=== PATIENT | male | born 1955 ===

== ENCOUNTER 2025-05-31 10:17 | Outpatient (AMB) | payer MEDICARE, SELFPAY ==
--- NOTE | 2025-05-31 10:21 | A.PHYSOV_ITS ---
Vital Signs 05/31/25 10:25 Height 5 ft 11 in Weight 215 lb BMI 30.0 Intake Visit Reasons: MRI FUV-SCANNED Intake Note: Patient is a 70 year old male in office today mri results of cervical spine. Safety And Security Manager Required: No Allergies No Known Allergies Allergy (Verified 05/31/25 10:25) HPI Comments Details: History of Present Illness The patient is a 70 year old individual presenting for a follow-up visit for chronic pain management and to review recent MRI results. The patient has a history of chronic pain involving the neck and lower back with associated cervical and lumbar radicular symptoms, bilateral knee pain, and a chronic right foot drop. The patient has undergone multiple prior surgeries, including lumbar fusions and cervical fusions at C3-C4 and a C5-C7 anterior cervical discectomy and fusion (ACDF), which resulted in chronic dysphagia. The patient reports worsening neck pain, described as the worst it has been in the last five years, which now interferes with sleep. An oral prednisone course prescribed last month did not provide relief. The patient previously tried pregabalin, which was discontinued due to intolerable cognitive side effects and nausea, and has also used gabapentin without perceived benefit. He has been able to tolerate gabapentin, however finds it unhelpful recently. The patient is managed under a pain medication contract and is prescribed MSContin 30 mg three times a day and oxycodone 20 mg 3 times a day for breakthrough pain, which provides a 40-50% reduction in pain. The patient's surgical history by [facility], who reportedly advised against further surgeries due to extensive scar tissue. He returns today with results of updated cervical spine MRI. Images were reviewed and discussed with the patient and his who was also present. The most pertinent finding on the MRI was evidence of moderate to severe bilateral C7-T1 neural foraminal stenosis and T1-T2 neural foraminal stenosis. Pain Description - Location: Chronic pain involves the neck, lower back, and bilateral knees. - Radiation: The patient reports pain radiating down both arms to the hands. - Quality: Numbness is present in both hands. - Character: The patient describes a weird sensation when sitting back in a chair, feeling as if the shoulder blades are being pressed in or pulled apart. - Severity: The patient describes the current pain as the worst experienced in the last five years. - Interference with Function: The pain wakes the patient from sleep. - Exacerbating Factors: Pain is worsened by sitting back in a chair and by putting weight on either shoulder while in bed. Results - Cervical Spine MRI (April 23, 2025): - Status post ACDF at C5-C6 and C6-C7. - C4-C5: Mild to moderate spinal canal stenosis with severe left and moderate right neural foraminal stenosis. - C5-C6: Moderate right and mild left neural foraminal stenosis. - C6-C7: Mild to moderate bilateral neural foraminal narrowing without significant central canal stenosis. - C7-T1: Moderate left and severe right neural foraminal narrowing. - T1-T2: Moderate to severe bilateral neuroforaminal narrowing, which has increased since the previous study. - Cervical Spine X-rays (January 05, 2023): Mentioned, results not discussed. - Cervical Spine MRI (November 14, 2022): Mentioned for comparison, results not detailed. [facility] Medical History (Updated 05/31/25 @ 11:44 by Andres Garnica DO) Cervical spinal stenosis Chronic pain syndrome Post laminectomy syndrome Lumbar radiculitis Cervical radiculitis Surgical History History of carpal tunnel surgery History of knee surgery History of hip replacement History of neck surgery History of back surgery Social History (Updated 05/31/25 @ 10:27 by Janey Potter MA) Household Members: Significant Other Alcohol intake: current Alcohol intake frequency: holidays/special occasions only Patient Tobacco Use Status: Never used Tobacco Substance Use Type: Marijuana Current occupational status: retired and disabled Review of Systems Narrative Review of Systems - Neurological: Reports radicular pain into both arms and numbness in both hands. - Reports a history of right foot drop. - Musculoskeletal: Reports chronic pain in the neck, lower back, and bilateral knees. - Reports frequent neck cracking. - Constitutional: Reports sleep disturbance secondary to pain. - GI: Reports chronic dysphagia as a complication from prior cervical spine surgery. Physical Exam Exam Exam: Physical Exam Patient appears to be in no acute distress appropriately conversant oriented. Severely flexed forward posture. Weakness of the right ankle dorsiflexion, weak eversion of the right foot, diminished right patellar reflex. He ambulates without antalgia with a walker today. Cervical range of motion was restricted in all planes. Spurling maneuver was positive on both sides. Neurological examination of upper extremities was nonfocal. Patient demonstrated no upper motor neuron signs. Vital Signs: BMI result Body Mass Index 30.0 Assessment & Plan Assessment & Plan (1) Cervical radiculitis: Code(s): M54.12 - Radiculopathy, cervical region Category: Medical (2) Lumbar radiculitis: Code(s): M54.16 - Radiculopathy, lumbar region Category: Medical (3) Post laminectomy syndrome: Code(s): M96.1 - Postlaminectomy syndrome, not elsewhere classified Category: Medical (4) Chronic pain syndrome: Code(s): G89.4 - Chronic pain syndrome Category: Medical (5) Cervical spinal stenosis: Code(s): M48.02 - Spinal stenosis, cervical region Category: Medical Plan Pain Management - Analgesia: The patient is contracted for pain medication, currently taking MSContin 30 mg three times daily and oxycodone 20 mg four times daily as needed for breakthrough pain. - The current regimen provides a reported 40-50% reduction in pain. - Activities of Daily Living: The patient reports that pain significantly disrupts sleep and cannot sit back or lie on either shoulder without pain. - The patient states, I can't live like this. - Affect: The pain causes significant sleep disturbance. - Adverse Effects: The patient previously tried pregabalin and experienced intolerable cognitive side effects and nausea. - When taking gabapentin twice a day, the patient felt in a fog or hazy. - Aberrant Drug-Related Behaviors: The patient ran out of breakthrough oxycodone on the day of the visit and requested an increase in the dosage. Plan Patient was informed and verbally consented to the use of an ambient scribe for clinic note documentation during this visit. 1. Cervicalgia With Cervical Radiculopathy The patient's worsening bilateral arm pain and hand numbness are consistent with findings on the recent cervical spine MRI, which shows significant C7-T1 and T1- T2 neuroforaminal narrowing below the prior cervical fusion. The pain is neuropathic in nature, significantly impacts sleep, and has failed to respond to a recent course of oral prednisone. Plan includes trialing gabapentin 1600 mg (two 800 mg tablets) at bedtime only to target neuropathic pain and improve sleep while minimizing daytime side effects. A T1-T2 epidural steroid injection under fluoroscopic guidance will be scheduled at [facility] to provide more targeted anti-inflammatory treatment. Surgical consultation for fusion extension was discussed as a future option, though the patient is reluctant given a history of complications and previous surgical advice. Risks and benefits of the procedure were discussed with the patient. Potential alternative measures were also discussed. Patient understands that the procedure is completely elective. Potential side effects associated with injectable medications were discussed. All questions were answered to the patient's satisfaction. 2. Chronic Pain Syndrome On Long-Term Opioid Therapy The patient is on a stable long-term opioid regimen with MSContin and oxycodone for breakthrough pain, reporting 40-50% analgesia. The patient requested a dose increase due to worsening pain and having run out of breakthrough medication. Given the neuropathic nature of the escalating pain and the patient's age, opioid escalation is not recommended at this time, with a focus instead on targeted neuropathic treatments. Prescriptions for the current regimen of MSContin 30 mg TID and oxycodone 20 mg will be refilled, oxycodone will be raised to 4 times a day as needed. Discussion Notes I reviewed the results of the patient's recent cervical spine MRI dated April 23, 2025, with the patient. I explained that the imaging shows significant foraminal narrowing at the C7-T1 and T1-T2 levels, which are below the previous surgical fusion, and that this nerve pinching is the likely cause of the worsening pain and numbness into both arms and hands. We discussed treatment options, including the possibility of another surgery to extend the fusion, but acknowledged the patient's reluctance due to prior complications like dysphagia and the previous surgeon's advice against more operations. I recommended a plan focused on conservative management, to which the patient agreed. This includes a T1-T2 epidural steroid injection, which I will perform under fluoroscopy at [facility]; I confirmed the patient is not on any blood thinners. We will also re-initiate a neuropathic agent, with the plan to try gabapentin 1600mg (two 800mg tablets) at bedtime only, in an effort to target the nerve pain and improve sleep while avoiding the daytime side effects the patient previously experienced. I discussed the patient's request for an increase in opioid medication and explained that escalating the dose is not the best course of action for this type of neuropathic pain and due to risks associated with aging. I agreed to send refills for the current pain medication regimen. The patient was informed that they will be contacted to schedule the injection. Patient Instructions - You will receive a call from [facility] to schedule an epidural s teroid injection (a shot in your upper back) for your arm pain and numbness. - Take two 800 mg tablets of gabapentin (total of 1600 mg) every night at bedtime. - Do not take gabapentin during the day, as this may help avoid side effects. - I have sent refills for your current pain medications (MSContin and oxycodone) to your pharmacy. - Please follow up after your injection procedure. Orders: Referrals Physiatry Procedure Notification M54.12 - Radiculopathy, cervical region Medications: New morphine ER Partial fill upon request 30 mg PO Q8H 84 tabs 0RF Chronic pain 28 days G89.4 - Chronic pain syndrome, M54.12 - Radiculopathy, cervical region, M54.16 - Radiculopathy, lumbar region, M96.1 - Postlaminectomy syndrome, not elsewhere classified oxycodone Partial fill upon request 20 mg PO QID PRN 112 tabs 0RF pain 28 days G89.4 - Chronic pain syndrome, M54.12 - Radiculopathy, cervical region, M54.16 - Radiculopathy, lumbar region, M96.1 - Postlaminectomy syndrome, not elsewhere classified Coding Level of Care Code Est Pt Level 4 (87884) Complex visit Add On G2211 Diagnoses Cervical radiculitis M54.12 Lumbar radiculitis M54.16 Post laminectomy syndrome M96.1 Chronic pain syndrome G89.4 Cervical spinal stenosis M48.02
--- OUTSIDE RECORDS SUMMARY | 2025-05-31 12:07 | XMS_ITS | Clinical Summary ---
Author Organization [facility] Address [address] [place] [address] Care Team Providers Care Mate Ship Name Role Phone Amairani Indigo Primary Care Provider Unavailjay e Allergies Active Allergy Reactions Criticality Noted Date Comments Morphine 04/20/2012 Reactions: Itching , [employer] Comment: Category: Allergy; 20Apr2012: ONLY WITH INTRAVENOUS MORPHINE Medications Amphetamine-Dex troamphetamine (ADDERALL) 30 MG tablet TAKE 1 TABLET TWICE DAILY. 0 4 Active Vitamin B-12 (VITAMIN B-12) 1000 MCG tablet TAKE 1 TABLET DAILY DIRECTED. 30 0 5 Active diazePAM (VALIUM) 10 MG tablet TAKE 1 TABLET TWICE DAILY, ONLY IF SPASMS 0 6 Active buPROPion HCl ER, XL, (WELLBUTRIN XL) 300 MG 24 hr tablet TAKE 1 TABLET BY MOUTH EVERY DAY 30 5 6 Active Acetaminophen (TYLENOL 8 HOUR) 650 MG 8 hr tablet TAKE 1 TABLET 4 TIMES DAILY NEEDED. 0 6 Active Atorvastatin Calcium (LIPITOR) 10 MG tablet TAKE 1 TABLET ON THURSDAY, THURSDAY AND THURSDAY 1 3 7 Active Gabapentin (NEURONTIN) 600 MG tablet TAKE ONE TABLET BY MOUTH THREE TIMES DAILY 90 5 7 Active Buprenorphine HCl-Naloxone HCl (SUBOXONE) 8-2 MG per SL tablet TAKE TWO IN MORNING, AND IF NEEDED, ANOTHER IN AFTERNOON 0 7 Active Active Problems Problem Noted Date Diagnosed Date Recurrent major depressive disorder, in partial remission 09/29/2018 Overview (08/09/2023): Severity: Medium Buprenorphine dependence 09/29/2018 Overview (08/09/2023): Severity: Medium Arthralgia 04/27/2018 Shoulder tendonitis 04/27/2018 Polyneuropathy associated with underlying diseas e 09/24/2017 Overview (08/09/2023): Transitioned From: Peripheral neuropathy Alcohol use, unspecified wit h unspecified alcohol-induced disorder 01/02/2017 Overview (08/09/2023): Severity: Medium Abnormal CXR (chest x-ray) 05/10/2016 Overview (08/09/2023): Description: follow up resolving infiltrate from prior pneumonia Rhabdomyolysis 05/02/2016 Meralgia paresthetica, left lower limb 6 Muscle spasm 01/01/2016 Abnormal breath sounds 09/17/2015 Erectile dysfunction 09/17/2015 Overview (08/09/2023): 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 Midline low back pain with right-sided sciatica 09/17/2015 Overview (08/09/2023): Transitioned From: Sciatica History of long-term treatment with high-risk me dication 08/28/2015 Vitamin B12 deficiency 01/29/2015 Basal cell carcinoma of skin 02/07/2014 Overview (08/09/2023): Description: L nasal Attention deficit disorder without hyperactivity 02/07/2014 Insomnia 12/06/2013 Overview (08/09/2023): Description: sleep study 2013 showed NO MAXIMILIANO ( AHI = 2) Snoring 05/06/2013 Essential hypertriglyceridemia 04/20/2012 Overview (08/09/2023): Transitioned From: Hyperlipidemia; Description: continue to exercise and monitor diet. lipids pending Anxiety disorder 11/04/2011 Overview (08/09/2023): Description: Doing ok but I would like him to try CBT. He agrees Gastroesophageal reflux disease 11/04/2011 Overview (08/09/2023): Description: Stable. Continue current treatment plan Never a smoker 07/10/2011 Resolved Problems Problem Noted Date Diagnosed Date Resolved Date History of Community acquired pneumonia 05/06/2016 09/22/2016 Immunizations Immunization Administration Dates Next Due Influenza (SEASONAL) - 03/21/2016,2014,05/17/2014,2012,04/20/2012 Influenza,injectable,quad,Prsrv Fr 04/27/2018 PCV-13 03/27/2015 PPV23 (Pneumovax) 04/17/2017 Tdap 04/20/2012 influenza,seasonal,trivalent ,PF (Fluzone, Fluarix, Flulaval) 04/17/2017 Family History Medical History Relation Name Comments Heart Disorder Father Reported Hear t Disease : Father Diabetes Maternal grandmother Diabete s Mellitus : Maternal Grandmother Cancer - Pancreatic Mother Malignan t Pancreatic Neoplasm : Mother Diabetes Mother Diabetes Mellit us : Mother Diabetes Sister Diabetes Mellit us : Sister Relation Name Status Comments Father Maternal grandmother Mother Sister Social History Tobacco Use Types Packs/Day Years Used Date Smoking Tobacco: Never Assessed Comments:Smoking Status:No c urrent tobacco use Sex and Gender Information Value Date Recorded Sex Assigned at Not on file Legal Sex Male 4:41 PM EDT Gender Identity Not on file Sexual Orientation Not on file Last Filed Vital Signs Vital Sign Reading Time Taken Comments Blood Pressure 124/70 04/27/2018 2:24 PM EDT Pulse 78 04/27/2018 2:24 PM EDT Temperature 37.2 C (99 F) 09/23/2017 12:14 PM EDT Respiratory Rate 20 04/27/2018 2:24 PM EDT Oxygen Saturation 98% 04/27/2018 2:24 PM EDT Inhaled Oxygen Concentration - - Weight 93.8 kg (206 lb 12.7 oz) 04/27/2018 2:24 PM EDT Height 175.3 cm (5' 9 ) 04/27/2018 2:24 PM EDT Body Mass Index 30.54 04/27/2018 2:24 PM EDT Plan of Treatment Health Maintenance Due Date Last Done Comments Zoster (Shingrix) (1 of 2) 2007 Pneumococcal 50+ years (3 of 3 - PCV20 or PCV21) 04/17/2022 04/17/2017, 03/27/2015 DTaP/Tdap/Td (2 - Td or Tdap) 04/20/2022 04/20/2012 Colon Cancer Screening 10/11/2023 10/10/2013 COVID-19 Vaccine ( season) 2025 Influenza (#1) 2025 04/27/2018, 04/05, 03/21/2016, Additional history exists RSV (1 - 1-dose 75+ series) 2032 Upper Endoscopy Discontinued 03/26/2012, 03/07, 03/26/2012 Hepatitis C Screening Completed 04/15/2012 Colonoscopy Discontinued 05/30/2013, 03/26/2012 Chest Imaging Discontinued 01/02/2017, 11/2015, 09/17/2015 EKG Discontinued 09/23/2017, 09/04, 05/07/2013, Additional history exists Physical Discontinued 09/23/2017, 09/04, 09/17/2015, Additional history exists LDL Cholesterol Discontinued 05/20/2018, 09/04, 04/16/2016, Additional history exists Abdominal Aorta Imaging Discontinued HPV Vaccine (No Doses Required) Completed Hep A Aged Out No longer eligi ble based on patient's age to complete this topic Hep B Aged Out No longer eligi ble based on patient's age to complete this topic Hib Aged Out No longer eligi ble based on patient's age to complete this topic Meningococcal ACWY Aged Out No longer eligible based on patient's age to complete this topic Zoster (Zostavax) Discontinued Procedures Procedure Name Priority Date/Time Associated Diagnosis Comments LIPID PANEL, PLASMA Routine 05/20/2018 1 2:00 AM EST EKG 09/23/2017 12:00 PM EDT XRAY CHEST, 2 VIEWS, PA & LATERAL FC Routine 01/02/2017 2:40 PM EDT COLONOSCOPY Routine 05/30/2013 10:51 AM EST HEPATITIS C AB WITH REFLEX TO RNA PCR, SERUM Routine 04/15/2012 9:58 AM EDT EGD (UPPER GI ENDOSCOPY) 03/26/2012 12:00 AM EDT from Last 3 Months or Most Recently Relevant to Health Maintenance Results * LIPID PANEL, PLASMA (05/20/2018 12:00 AM EST) Pathologist [facility] Cholesterol 175 PHCT CONVERSIONS Triglyceride 130 PHCT CONVERSIONS HDL Cholesterol 59 PHCT CONVERSIONS LDL Cholesterol 90 PHCT CONVERSIONS CHOL/HDL Ratio 3.0 PHCT CONVERSIONS 05/20/2018 us Php Unknown Prov LABORATORY Final Result PHCT CONVERSIONS * EKG (09/23/2017 12:00 PM EDT) Narrative 09/23/2017 12:00 PM EDT Ordered by an unspecified provider. us Unknown Provider CARDIOVASCULAR-NO INBASKET RTG Final Result * XRAY CHEST, 2 VIEWS, PA & LATERAL FC (01/02/2017 2:40 PM EDT) [facility] IMAGING STUDY Addendum 5:12 PM --- Addendum dictated 01/02/2017 at 5:11 PM. There is no focal consolidation on today's exam. The lungs are clear. Electronically signed by: Yulia Coates M.D. Original Report 4:40 PM --- Exam: X-ray chest 2 views INDICATION: Follow-up COMPARISON: September 22, 2016 No acute infiltrates or pleural effusions visualized. Heart size is within normal limits. No failure seen. Spine appears degenerative with osteopenia. There is increased density posterior to the upper sternum on the lateral view likely secondary to rotation. IMPRESSION: No new infiltrates visualized. Electronically signed by Tyler Randolph MD [facility] Reported To: Stephen Escobedo Reported To: Stephen Escobedo PHCT CONVERSIONS Anatomical Region Laterality Modality CHEST Radiographic Ava ging 01/02/2017 2:40 PM EDT us Stephen Escobedo MD IMG XRAY NO CONTRAST ORDERAB LES Edited * COLONOSCOPY (05/30/2013 10:51 AM EST) COLONOSCOPY, RESULT Other PHCT CONVERSIONS 05/30/2013 10:5 1 AM EST us Php Unknown Prov PROCEDURES Final Result Performing Organization Address [facility] Co de Phone Number PHCT CONVERSIONS * HEPATITIS C AB WITH REFLEX TO RNA PCR, SERUM (04/15/2012 9:58 AM EDT) Hepatitis C virus Ab Signal/Cutoff 0.1 0.0 - 0.9 S/CO RATIO PHCT CONVERSIONS Comment: NEGATIVE: < 0.8 INDETERMINATE 0.8 - 0.9 POSITIVE: > 0.9 IN ORDER TO REDUCE THE INCIDENCE OF A FALSE POSITIVE RESULT, THE CDC RECOMMENDS THAT ALL S/CO RATIOS BETWEEN 1.0 AND 10.9 BE CONFIRMED WITH ADDITIONAL RIBA OR PCR TESTING. 04/15/2012 9:58 AM EDT Narrative PHCT CONVERSIONS - 04/16/2012 8:25 AM EDT TESTING PERFORMED AT: [RN] [facility], [address] [place] [address], [place], [address], PHONE: [phone], CLINICAL NURSING DIRECTOR: EUGENIO PEREZ MD us Stephen Escobedo MD LABORATORY Final Result Performing Organization Address [facility] Co de Phone Number PHCT CONVERSIONS * EGD (UPPER GI ENDOSCOPY) (03/26/2012 12:00 AM EDT) Narrative 03/26/2012 12:00 AM EDT Ordered by an unspecified provider. us Unknown Provider PROCEDURES Final Result from Last 3 Months or Most Recently Relevant to Health Maintenance Care Teams Mate Ship Relationship Specialty Start Date End Date Indigo Bales PCP - General 02/09/23
--- OUTSIDE RECORDS SUMMARY | 2025-05-31 12:07 | XMS_ITS | Clinical Summary ---
Author Organization [facility] Address [address] [place] [address] Care Team Providers Care Mid Level Java Developer Name Role Phone Unavailable Primary Care Provider Unavailabl e Social History Tobacco Use Types Packs/Day Years Used Date Smoking Tobacco: Never Assessed Sex and Gender Information Value Date Recorded Sex Assigned at Not on file Legal Sex Male 10:51 AM EST Gender Identity Not on file Sexual Orientation Not on file Plan of Treatment Not on file
--- OUTSIDE RECORDS SUMMARY | 2025-05-31 12:07 | XMS_ITS | Clinical Summary ---
Author Organization [facility] Address [address] [facility] [address] [place] [phone] Phone Care Team Providers Care Supervisor Metal Cans Name Role Phone Ricardo Klein MD Primary Care Provider [phone] Allergies Active Allergy Reactions Criticality Noted Date Comments Morphine 12/07/2023 Other Reaction(s): Itching of skin IV only Medications amitriptyline (ELAVIL) 50 MG tablet Take 50 mg by mouth nightly at bedtime. Active NORVASC 5 mg tablet Take 5 mg by mouth. 4 Active atorvastatin (LIPITOR) 10 MG tablet See Instructions, 1 tablet every Thursday, Thursday and Thursday, # 36 tablet, 3 Refills, Maintenance, 10/21/23 10:42:00 EDT, [facility], Partial fill upon patient request if the prescription is for a schedule II opioid drug., 180.3, cm, 0... 4 Active buPROPion (WELLBUTRIN XL) 300 MG ER 24 hr tablet Take 300 mg by mouth every morning. Active busPIRone (BUSPAR) 30 MG tablet Take 30 mg by mouth 2 (two) times a day. Active dextroamphetami ne-amphetamine (ADDERALL) 30 mg Tab tablet Take 30 mg by mouth 2 (two) times a day. Active diazePAM (VALIUM) 10 MG tablet Take 10 mg by mouth. 4 Active doxycycline hyclate (VIBRAMYCIN) 100 MG capsule Take 100 mg by mouth 2 (two) times a day. Active gabapentin (NEURONTIN) 800 MG tablet Take 800 mg by mouth 3 (three) times a day. Active oxyCODONE HCl 20 mg Tab Take 20 mg by mouth 3 (three) times a day as needed. 4 Active morphine (MS CONTIN) 30 MG ER tablet Take 30 mg by mouth every 8 (eight) hours. Active morphine (MSIR) 15 MG tablet Take 15 mg by mouth. Active Social History Tobacco Use Types Packs/Day Years Used Date Smoking Tobacco: Never Assessed Education Answer Date Recorded Are you interested in more education? Not on phuong e 11/01/2022 Are you concerned about learning? Not on file 11/01/2022 No 11/01/2022 No 11/01/2022 Digital Access Answer Date Recorded No 12/02/2022 No 12/02/2022 Reliable internet access at home? Not on file 12/02/2022 Device with a working camera? Not on file Intimate Partner Violence Answer Date R ecorded Are you denied basic needs s uch as food, clothing, or medical care? No 12/07/2023 In the past 12 months have y ou been in a relationship with a person who hurts, threatens, or tries to control you? No 12/07/2023 Are you denied basic needs s uch as food, clothing, or medical care? No 12/07/2023 In the past 12 months have y ou been in a relationship with a person who hurts, threatens, or tries to control you? No 12/07/2023 Sex and Gender Information Value Date Recorded Sex Assigned at Male 12/07/2023 2:57 PM EDT Legal Sex Male 1:06 PM EDT Gender Identity Male 12/07/2023 2:57 PM EDT Sexual Orientation Straight 12/07/2023 2: 57 PM EDT Last Filed Vital Signs Vital Sign Reading Time Taken Comments Blood Pressure 148/92 12/07/2023 5:00 PM EDT Pulse 90 12/07/2023 5:00 PM EDT Temperature 36.8 C (98.2 F) 12/07/2023 5:00 PM EDT Respiratory Rate 16 12/07/2023 5:00 PM EDT Oxygen Saturation 97% 12/07/2023 5:00 PM EDT Inhaled Oxygen Concentration - - Weight 96.2 kg (212 lb) 12/07/2023 3:00 PM EDT Height 180.3 cm (5' 11 ) 12/07/2023 3:00 PM EDT Body Mass Index 29.57 12/07/2023 3:00 PM EDT Plan of Treatment Health Maintenance Due Date Last Done Comments LIPID PANEL 1957 DEPRESSION SCREENING 1969 SMOKING Hx and SMOKELESS TOB ACCO SCREENING 1970 HEPATITIS C SCREENING 1975 SCREENING FOR DIABETES 1992 COLOGUARD 2002 COLONOSCOPY 2002 COLORECTAL CANCER SCREENING 2002 FIT TEST 2002 FOBT 2002 SIGMOIDOSCOPY 2002 VIRTUAL COLONOSCOPY 2002 PNEUMOCOCCAL VACCINES (50+ y ears) (1 of 1 - PCV) 2007 ZOSTER VACCINES (1 of 2) 2007 Adult Td,Tdap Booster 04/20/2022 04/20/2012 INFLUENZA VACCINE (#1) 2025 COVID-19 VACCINE (1 - 2024-2 6 season) 2025 RSV VACCINE (1 - 1-dose 75+ series) 2032 HEPATITIS A VACCINES Aged Out No long er eligible based on patient's age to complete this topic HIB VACCINES Aged Out No longer eligi ble based on patient's age to complete this topic MENINGOCOCCAL VACCINES (ACWY) Aged Out No longer eligible based on patient's age to complete this topic MENINGOCOCCAL VACCINES (B) Aged Out N o longer eligible based on patient's age to complete this topic Medical Devices Not on file Insurance [facility] MEDICARE [place] [address] [place] [address] MEDICARE REPLACEMENT MEDIC[place] [address] [place] [address] MEDICARE REPLACEMENT [facility] MEDICARE REPLACEMENT [facility] MEDICARE REPLACEMENT Care Teams Supervisor Metal Cans Relationship Specialty Start Date End Date Ricardo Klein MD [address] [place] [address] [place] [address] PCP - General Internal Medicine 12/07/23 Additional Source Comments The information contained in this document represents components of the legal health record. It is not the complete legal health record.[facility]
--- OUTSIDE RECORDS SUMMARY | 2025-05-31 12:07 | XMS_ITS ---
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, SNOMED CT) Mild 09/18/2021 active 7052 RXNORM Morphine Systemic vascul itis (code- 96069618, SNOMED CT) Moderate 09/18/2021 active Care Team Name Role Address Phone Organization Dates Wolf Armando [address] [facility] [address], [address], [place] (Office): : : [facility] 09/17/2021 - 11/01/2021 Rimma Bravo [address] [place] [address], [id number], [place] (Office): [facility] 09/17/2021 - 11/01/2021 Abby Shoemaker [address] [place] [address], [place], [address], [place] (Office): : [facility] 09/17/2021 - 11/01/2021 Amanda [facility]ubin [facility] [address] [facility], [place], [address], [place] (Office): : [facility] 09/17/2021 - 11/01/2021 Immunizations Immunization Status Vaccine Details Vaccine Code CodeSystem Date Notes TB 2 Step Mantoux Skin Test completed tuberculin skin test; purified protein derivative solution, intradermal lotNumber: [id number] expiry: 06/04/2023 Mfg: PAR Given 0.1 ml Left Forearm intradermally Step 1 of Multi-step 96 CVX created date: 2 consent date: 2 administe red date: 2 Influenza (high dose) completed Influenza, high-dose, split virus, trivalent, injectable, preservative free 135 CVX created date: 2 administe red date: 2 COVID-19 Vaccine Dose 1 completed unknown vaccine or immune globulin Mfg: Pfizer 999 CVX created date: 2 administe red date: 1 COVID-19 Vaccine Dose 2 completed unknown vaccine or immune globulin Mfg: Pfizer 999 CVX created date: 2 administe red date: 1 COVID-19 Vaccine Additional Dose/Booster completed unknown vaccine or immune globulin lotNumber: [id number] expiry: 09/27/2021 Mfg: Pfizer Given 0.3 ml Left Deltoid intramuscularly 999 CVX created date: 2 consent date: 2 administe red date: 2 Educated by Linda Riddle on 09/18/2021 Mental Status Section Date Assessment Total Score Description 11/01/2021 CAM 0 No delirium ind icated 09/23/2021 BIMS 15 cognitively int act CAM 0 No delirium ind icated PHQ-9 07 mild depression Insurance Providers Problems Problem # Description Date of onset Resolved Date Code CodeSystem Concern Status 1 ATTENTION-DEFICIT HYPERACTIVITY DISORDER, UNSPECIFIED TYPE 09/17/[address] active 2 DISCITIS, UNSPECIFIED, SITE UNSPECIFIED 09/17/[address] active 3 ESSENTIAL (PRIMARY) HYPERTENSION 09/17/[address] active 4 EXTRADURAL AND SUBDURAL ABSCESS, UNSPECIFIED 09/17/[address] active 5 GENERALIZED ANXIETY DISORDER 09/17/[address] active 6 HYPERLIPIDEMIA, UNSPECIFIED 09/17/[address] active 7 LOW BACK PAIN, UNSPECIFIED 09/17/[address] active 8 MAJOR DEPRESSIVE DISORDER, SINGLE EPISODE, UNSPECIFIED 09/17/[address] active 9 OSTEOMYELITIS, UNSPECIFIED 09/17/[address] active 10 SPINAL STENOSIS, LUMBAR REGION WITH NEUROGENIC CLAUDICATION 09/17/[address] active 11 TROCHANTERIC BURSITIS, RIGHT HIP 09/17/[address] active Reason for Referral No Reasons for Referral Entered Social History Social History Observation Description Start Date End Date Code Code System Current Smoking Status Tobacco smoking consumption unknown 339000680 SNOMED CT Sex Assigned At Male 1955 [address]54[address]-9 [facility] Gender Identity Sexual Orientation Vital Signs Code Code System Vitals Name Values and Units Timing Information 41211-2 [facility] Pain Level Value=0.0 11/01/2021 9279-1 LOINC Respiratory Rate Value=18.0 Units=/m in 10/31/2021 8462-4 LOINC Blood Pressure-Diastolic Value=72 Un its=mmHg 10/31/2021 8480-6 LOINC Blood Pressure-Systolic Pvpsl=420 Un its=mmHg 10/31/2021 8310-5 [facility] Body Temperature Value=97.6 Units= F 10/31/2021 8867-4 LOINC Heart rate Value=74.0 Units=/min 46504-3 [facility] O2 % BldC Oximetry Value=97.0 Units= % 10/31/2021 20157-6 LOINC Weight Hztqg=170.8 Units=Lbs 06/2022 8302-2 LOINC Height Value=71.0 Units=Inches 09/18/2021
== END 2025-05-31 10:47 | disposition home or self-care (01) ==
LOC: HO.HPHYS 10:17
PROVIDERS: PCP Internal Medicine; Visit Provider Physical Medicine & Rehabilitation
DX: M54.12 Radiculopathy, cervical region (principal); M54.16 Radiculopathy, lumbar region; M96.1 Postlaminectomy syndrome, not elsewhere classified; G89.4 Chronic pain syndrome; M48.02 Spinal stenosis, cervical region
CPT/HCPCS: 99214; G2211

== ENCOUNTER → 2025-05-31 10:17 | Outpatient (BNVA) | payer MEDICARE, SELFPAY | PROVIDERS: PCP Internal Medicine; Visit Provider Physical Medicine & Rehabilitation | DX: M54.12 Radiculopathy, cervical region (principal); M54.16 Radiculopathy, lumbar region; M96.1 Postlaminectomy syndrome, not elsewhere classified; G89.4 Chronic pain syndrome; M48.02 Spinal stenosis, cervical region | CPT/HCPCS: 99212 ==